=== PATIENT | female | born 2000 | race African-American/Black ===

== ENCOUNTER 2018-06-28 22:24 | Emergency (ER) | payer OTHER ==
[2018-06-28 22:35] VITALS: Ht 172.7 cm
[2018-06-29 00:22] VITALS: BP 120/74
== END 2018-06-29 00:22 | disposition home or self-care (01) ==
LOC: ED 22:24
DX: N39.0 Urinary tract infection, site not specified (principal); M79.10 Myalgia, unspecified site; R11.0 Nausea
CPT/HCPCS: J0696